=== PATIENT | male | born 1965 | race African-American/Black ===

== ENCOUNTER 2020-07-21 10:29 | Emergency (ER) | payer OTHER ==
[~2020-07-21] VITALS: Ht 182.9 cm; Wt 74.8 kg
[~2020-07-21 10:29] MED LIST: IBUPROFEN600 MG ORAL
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
[2020-07-21] MEDS ORDERED: Tetanus/Diptheria/Pertussis IM ONE (10:45)
[2020-07-21] MEDS ORDERED: Lidocaine 1% Plain 30 ml INJ ONE (10:45)
[2020-07-21 10:51] VITALS: BP 131/84
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
[2020-07-21] MEDS ORDERED: ceFAZolin 2gm/50ml Premix 50 ML IV ONE (11:30)
[2020-07-21] MEDS ORDERED: HYDROcodone/Acetamin 7.5/325 tab ORAL ONE (12:15)
[2020-07-21] MEDS ORDERED: NORCO 5-325 TA1 EAC1 ORAL (12:38)
[2020-07-21] MEDS ORDERED: CEPHALEXIN500 MG ORAL (12:38)
[2020-07-21 12:45] VITALS: BP 134/82
[2020-07-21 12:50] VITALS: BP 134/82
== END 2020-07-21 13:03 | disposition home or self-care (01) ==
LOC: EMR 10:51
DX: S61.210A Laceration without foreign body of right index finger without damage to nail, initial encounter (principal); S62.610A Displaced fracture of proximal phalanx of right index finger, initial encounter for closed fracture; W22.8XXA Striking against or struck by other objects, initial encounter; Y93.89 Activity, other specified; Y92.9 Unspecified place or not applicable
CPT/HCPCS: 12001; 73130; 90471; 90715; 96365; J0690; J2001; Z7502; 99284